=== PATIENT | female | born 1940 | race Two or more races ===

== ENCOUNTER 2019-09-02 13:50 | Outpatient (CLI) | payer MEDICARE, MEDICAID ==
[2019-09-02] MEDS ORDERED: SLEEPING PILL (16:02)
[2019-09-02] MEDS ORDERED: FISH OIL CAP1000 MG ORAL (16:02)
[2019-09-02] MEDS ORDERED: CHOLESTEROL (16:02)
[2019-09-02] MEDS ORDERED: ASPIRIN EC81 MG ORAL (16:02)
== END 2019-09-02 15:50 | disposition home or self-care (01) ==
DX: R63.4 Abnormal weight loss (principal); R11.2 Nausea with vomiting, unspecified

== ENCOUNTER 2019-09-21 07:58 | Day surgery (SDC) | payer MEDICARE, MEDICAID ==
[2019-09-21] VITALS (9 sets, daily range): BP systolic 105–123; BP diastolic 48–62
[~2019-09-21] VITALS: Ht 154.9 cm; Wt 41.7 kg
[~2019-09-21 07:58] MED LIST: ASPIRIN EC81 MG ORAL; CHOLESTEROL; FISH OIL CAP1000 MG ORAL; SLEEPING PILL; VASCEPA1 GM PO
[2019-09-21] MEDS ORDERED: LR 1000ml 1,000 ML IVLG SCH ×2 (09:00→09:45)
--- NOTE | 2019-09-21 09:28 | Pre-Procedure Note/Attestation ---
Pre-Procedure Note/Attestation Complete Prior to Procedure Planned Procedure: not applicable Procedure Narrative: esophagogastroduodenoscopy and colonoscopy Indications for Procedure Pre-Operative Diagnosis: weigh loss Attestation I attest that I discussed the nature of the procedure; its benefits; risks and complications; and alternatives (and the risks and benefits of such alternatives ), prior to the procedure, with the patient (or the patient's legal bilingual call center representative). I attest that, if there was a reasonable possibility of needing a blood transfusion, the patient (or the patient's legal bilingual call center representative) was given the [facility] standardized written summary, pursuant to the Aj Esperanza Blood Safety Act ([place] Health and Safety Code # 1645, as amended). I attest that I re-evaluated the patient just prior to the surgery and that there has been no change in the patient's H&P, except as documented below: Bautista Faustin MD Sep 21, 2019 09:28
--- NOTE | 2019-09-21 09:28 | Short Stay Surgery H&P ---
History of Present Illness History of Present Illness Chief Complaint see office consult note HPI Forough Sasha is a 79 year old female who was admitted on for Gerd, Colon Screening Patient History Allergies: Coded Allergies: No Known Allergies (Unverified , 09/18/19) Medication History Scheduled Aspirin Ec* (Aspirin Ec*), 81 MG ORAL DAILY, (Reported) Fish Oil (Fish Oil 1,000 mg Capsule), 1,000 MG ORAL DAILY, (Reported) Miscellaneous Medications Icosapent Ethyl (Vascepa), 1 GM PO, (Reported) [Sleeping Pill], (Reported) Physical Exam Vital Signs Last Vital Signs Date Time Temp Pulse Resp B/P (MAP) Pulse Ox O2 Delivery O2 Flow Rate FiO2 09/21/19 08:34 Room Air 09/21/19 08:34 97.0 66 18 105/60 95 Plan Attestation Are the patient's medical conditions optimized for surgery? Bautista Faustin MD Sep 21, 2019 09:28
[2019-09-21] MEDS ORDERED: LR 1000ml ONE (09:30)
[2019-09-21] MEDS ORDERED: Lidocaine 1% MPF 10mg/ml 5ml ONE (09:30)
[2019-09-21] MEDS ORDERED: Midazolam 2mg/2ml Inj IVP PRN (09:45)
[2019-09-21] MEDS ORDERED: DiphenhydrAMINE 50mg/ml Inj IVP PRN (09:45)
[2019-09-21] MEDS ORDERED: fentaNYL 100 mcg/2 mL IV PRN (09:45)
[2019-09-21] MEDS ORDERED: Atropine Inj 1mg/10ml Syr IV PRN (09:45)
--- NOTE | 2019-09-21 10:03 | Anethesia Preoperative Eval ---
Anesthesia Pre-op PMH/ROS General Date of Evaluation: Sep 21, 2019 Time of Evaluation: 09:33 Anesthesiologist: nathan ASA Score: ASA 4 Mallampati Score Class I : Soft palate, uvula, fauces, pillars visible Class II: Soft palate, uvula, fauces visible Class III: Soft palate, base of uvula visible Class IV: Only hard plate visible Mallampati Classification: Class II Surgeon: ju Diagnosis: gerd, colon screening Surgical Procedure: egd/colonoscopy Anesthesia History: none Social History: smoking - former smoker Family History: no anesthesia problems Allergies: Coded Allergies: No Known Allergies (Unverified , 09/18/19) Medications: see eMAR Patient NPO?: Yes Past Medical History Cardiovascular: Reports: other - hypercholesterolemia Gastrointestinal/Genitourinary: Reports: GERD, other - ulcer, hemorrhoids, urinary incontinence HEENT: Reports: cataract (L), cataract (R), SOBOBA (L), SOBOBA (R) Anesthesia Pre-op Phys. Exam Physician Exam Last Vital Signs Date Time Temp Pulse Resp B/P (MAP) Pulse Ox O2 Delivery O2 Flow Rate FiO2 09/21/19 08:34 Room Air 09/21/19 08:34 97.0 66 18 105/60 95 Constitutional: NAD Neurologic: CN 2-12 intact Cardiovascular: RRR Respiratory: CTA Gastrointestinal: S/NT/ND Airway Exam Mallampati Score: Class II MO: limited Neck: flexible TMD: 2fb ROM: limited Teeth: missing Dentures: upper, lower Anesthesia Pre-op A/P Labs Microbiology Date/Time Source Procedure Growth Status 09/18/19 08:55 Nasopharynx SARS-CoV-2 RdRp Gene Assay - Final Complete Studies Pre-op Studies: EKG - nsr, nstwa Risk Assessment & Plan Assessment: asa4 Plan: mac Status Change Before Surgery: No Pre-Antibiotics Drug: Hermila Medellin MD Sep 21, 2019 10:03
--- NOTE | 2019-09-21 10:32 | Endoscopy Procedure Note ---
Endoscopy Procedure Note General Indication for Procedure: weight loss Procedures Performed: EGD, colonoscopy Operative Findings/Diagnosis: gastrtiis, diverticulosis Specimen: yes Pt Tolerated Procedure Well: Yes Estimated Blood Loss: none Anesthesia Anesthesiologist: arnulfo medel Anesthesia: MAC Inserted Devices Implant(s) used?: No Quality Quality of Bowel Preparation: Good Did scope reach the cecum?: Yes Was there any complications?: No GI Core Measures 50 yrs or older w/o bx or poly: No 10yrs. F/U recommended: Yes If not recommended, why?: Above average risk 18 years or older w/prev. colo: Yes <3yrs. since last colonoscopy: No Bautista Faustin MD Sep 21, 2019 10:32
--- NOTE | 2019-09-21 12:33 | Immediate Post-Op Evaluation ---
Immediate Post-Op Evalulation Immediate Post-Op Evalulation Procedure: egd/colonoscopy Date of Evaluation: Sep 21, 2019 Time of Evaluation: 10:33 IV Fluids: 650ml lr Blood Products: none Estimated Blood Loss: negligible Blood Pressure Systolic: 109 Blood Pressure Diastolic: 48 Pulse Rate: 62 Respiratory Rate: 18 O2 Sat by Pulse Oximetry: 100 Temperature (Fahrenheit): 98.5 Pain Score (1-10): 0 Nausea: No Vomiting: No Complications none Patient Status: awake, reacts, patent Hydration Status: adequate Drug: Hermila Medellin MD Sep 21, 2019 12:32
--- NOTE | 2019-09-21 12:34 | 48 Hour Post Anesthesia Eval ---
Post Anesthesia Evaluation Procedure: egd/colonoscopy Date of Evaluation: Sep 21, 2019 Time of Evaluation: 10:35 Blood Pressure Systolic: 118 0: 62 Pulse Rate: 68 Respiratory Rate: 18 Temperature (Fahrenheit): 98.5 O2 Sat by Pulse Oximetry: 100 Airway: patent Nausea: No Vomiting: No Pain Intensity: 0 Hydration Status: adequate Cardiopulmonary Status: stable Mental Status/LOC: patient returned to baseline Post-Anesthesia Complications: none Follow-up care needed: N/A Hermila Jensen MD Sep 21, 2019 12:34
--- NOTE | 2019-09-21 13:45 | Procedure Note ---
DATE OF PROCEDURE: 09/21/2019 SURGEON: Bautista Faustin MD. REFERRING PHYSICIAN: Bautista Malave MD. PROCEDURE: Upper endoscopy with biopsy and colonoscopy. ANESTHESIA: Per Dr. Rivera. INSTRUMENT: Olympus adult flexible upper endoscope and colonoscope. INDICATIONS: Screening colonoscopy evaluation and significant weight loss. REASON FOR PROCEDURE: The procedure, risks, benefits, and possible consequences, including hemorrhage, aspiration, perforation and infection, and alternative treatments, were explained to the patient/legal guardian by Dr. Bautista Faustin and the patient/legal guardian understood and accepted these risks. PROCEDURE IN DETAIL: After informed consent was obtained and the patient was adequately sedated, Olympus upper endoscope was advanced from mouth into the second portion of the duodenum and retroflexion was performed in the stomach. The patient had shallow gastric ulceration in the prepyloric region at 12 o'clock position without any active bleeding. No stigmata of bleeding. It is a very shallow less than a centimeter ulcer, clear base. Otherwise, the patient has diffuse gastritis. Random biopsy from antrum and body was obtained to rule out H. pylori infection. The patient had weak lower esophageal sphincter tone. No obvious esophagitis. Next one inlet patch was seen below the upper esophageal sphincter. At this time, the upper endoscope was completely retrieved and the patient was turned over for colonoscopy. First, rectal exam was performed, which was positive for internal hemorrhoids. Then, the scope was advanced from rectum into the cecum documented b appendix orifice, ileocecal valve, and right upper quadrant palpation. Quality of prep was good. The patient had significant diverticulosis in the left colon with some scattered diverticulosis in the right colon. No obvious mass, polyp, or any pathology was seen. Retroflexion of rectum showed evidence of internal hemorrhoids. SUMMARY OF FINDINGS: 1. Inlet patch. 2. Lower esophageal sphincter weakness. 3. Gastritis. 4. Gastric ulcer. See above for details. 5. Internal hemorrhoids. 6. Diverticulosis. RECOMMENDATIONS: 1. Follow biopsy results and treat accordingly. 2. The patient needs to be seen in the office for further workup for weight loss, may benefit from a [facility] CT if it is not done yet. I want to thank Dr. Bautista Malave for this kind referral. Bautista Faustin M.D. DR: GLORIA JOB#: [id number] CC: Bautista Malave M.D.; Fax#: [phone]
== END 2019-09-21 11:15 | disposition home or self-care (01) ==
LOC: GAS 07:58
DX: Z12.11 Encounter for screening for malignant neoplasm of colon (principal); K29.50 Unspecified chronic gastritis without bleeding; R63.4 Abnormal weight loss; Z68.1 Body mass index [BMI] 19.9 or less, adult; K57.90 Diverticulosis of intestine, part unspecified, without perforation or abscess without bleeding; K64.8 Other hemorrhoids; Z79.82 Long term (current) use of aspirin; E78.00 Pure hypercholesterolemia, unspecified; Z87.891 Personal history of nicotine dependence
CPT/HCPCS: 43239; 94003; G0121; J2704; J7120; U0002; 94150

== ENCOUNTER 2019-10-05 14:00 | Outpatient (CLI) | payer MEDICARE, MEDICAID | END 2019-10-05 16:00 | disposition home or self-care (01) | LOC: PAN 14:00 | DX: R10.9 Unspecified abdominal pain (principal) | CPT/HCPCS: 99212 ==